=== PATIENT | male | born 1960 | race Asian ===

== ENCOUNTER 2018-07-26 23:29 | Emergency (ER) | payer OTHER ==
[~2018-07-26] VITALS: Ht 172.7 cm; Wt 81.6 kg
[2018-07-27 01:05] LABS: PLATELET COUNT 234 K/uL (142-355)
[2018-07-27 01:35] LABS: POTASSIUM 3.9 mmol/L (3.6-5.2); SODIUM 138 mmol/L (136-145)
[2018-07-27 02:45] VITALS: BP 185/98; TEMP 98.2
== END 2018-07-27 03:13 | disposition home or self-care (01) ==
LOC: ED 23:29
PROVIDERS: Emergency Medicine
DX: M79.18 Myalgia, other site (principal); E11.9 Type 2 diabetes mellitus without complications
CPT/HCPCS: 36415; 80053; 82550; 82553; 83735; 84484; 85027; 96372; 99283; J1885

== ENCOUNTER 2019-01-11 23:02 | Outpatient (CLI) | payer OTHER | END 2019-01-11 23:11 | disposition short-term general hospital (02) | LOC: AMB 23:02 | DX: M79.672 Pain in left foot (principal); M79.671 Pain in right foot; M79.601 Pain in right arm | CPT/HCPCS: A0425; A0429 ==

== ENCOUNTER 2019-01-11 23:14 | Emergency (ER) | payer OTHER ==
[~2019-01-11] VITALS: Ht 172.7 cm; Wt 81.6 kg
[2019-01-12 00:02] LABS: PLATELET COUNT 230 K/uL (142-355)
[2019-01-12 00:24] LABS: POTASSIUM 4.1 mmol/L (3.6-5.2)
[2019-01-12 00:43] VITALS: BP 187/79; TEMP 97.9
== END 2019-01-12 00:43 | disposition home or self-care (01) ==
LOC: ED 23:21
PROVIDERS: Emergency Medicine
DX: E11.40 Type 2 diabetes mellitus with diabetic neuropathy, unspecified (principal); E11.65 Type 2 diabetes mellitus with hyperglycemia; M79.671 Pain in right foot
CPT/HCPCS: 36415; 80053; 81000; 82962; 83735; 85027; 96360; 96372; 96375; 99284; J1815; J1885

== ENCOUNTER 2019-03-17 12:53 | Emergency (ER) | payer OTHER ==
[~2019-03-17] VITALS: Ht 172.7 cm; Wt 81.6 kg
[2019-03-17 13:02] VITALS: TEMP 98.9
[2019-03-17 14:30] VITALS: BP 139/86
== END 2019-03-17 14:40 | disposition home or self-care (01) ==
LOC: ED 12:53
DX: E11.40 Type 2 diabetes mellitus with diabetic neuropathy, unspecified (principal)
CPT/HCPCS: 99282

== ENCOUNTER 2019-06-03 12:56 | Emergency (ER) | payer OTHER ==
[~2019-06-03] VITALS: Ht 172.7 cm; Wt 81.6 kg
[2019-06-03 13:10] VITALS: TEMP 97.5
[2019-06-03 13:57] LABS: PLATELET COUNT 225 K/uL (142-355)
[2019-06-03 14:08] LABS: POTASSIUM 3.9 mmol/L (3.6-5.2)
[2019-06-03 15:47] VITALS: BP 152/84
== END 2019-06-03 15:48 | disposition home or self-care (01) ==
LOC: ED 12:56
PROVIDERS: Family Medicine
DX: E11.65 Type 2 diabetes mellitus with hyperglycemia (principal); I10 Essential (primary) hypertension; E11.42 Type 2 diabetes mellitus with diabetic polyneuropathy
CPT/HCPCS: 80053; 81000; 85027; 96360; 96375; 99284; J1815

== ENCOUNTER 2019-10-31 05:02 | Emergency (ER) | payer OTHER ==
[~2019-10-31] VITALS: Ht 172.7 cm; Wt 81.6 kg
[2019-10-31 05:25] LABS: PLATELET COUNT 203 K/uL (142-355)
[2019-10-31 05:42] LABS: POTASSIUM 4.2 mmol/L (3.6-5.2); SODIUM 143 mmol/L (136-145)
[2019-10-31 05:45] LABS: PARTIAL THROMBOPLASTIN TIME 27.8 SECONDS (24.5-33.6)
[2019-10-31 06:22] VITALS: BP 157/88; TEMP 99
== END 2019-10-31 06:23 | disposition home or self-care (01) ==
LOC: ED 05:02
PROVIDERS: Hospitalist
DX: I16.0 Hypertensive urgency (principal); R42 Dizziness and giddiness; F17.210 Nicotine dependence, cigarettes, uncomplicated
CPT/HCPCS: 80053; 82550; 83880; 84484; 85027; 85610; 85730; 93005; 99283

== ENCOUNTER 2020-10-15 14:32 | Emergency (ER) | payer OTHER ==
[~2020-10-15] VITALS: Ht 172.7 cm; Wt 93.0 kg
[2020-10-15 14:40] VITALS: TEMP 98.5
[2020-10-15 15:16] LABS: PLATELET COUNT 262 K/uL (142-355)
[2020-10-15 15:24] LABS: POTASSIUM 4.2 mmol/L (3.6-5.2)
[2020-10-15 17:18] VITALS: BP 100/73
== END 2020-10-15 17:19 | disposition home or self-care (01) ==
LOC: ED 14:32
PROVIDERS: Emergency Medicine
DX: L03.115 Cellulitis of right lower limb (principal); E11.65 Type 2 diabetes mellitus with hyperglycemia; W25.XXXA Contact with sharp glass, initial encounter; Y92.89 Other specified places as the place of occurrence of the external cause
CPT/HCPCS: 36415; 80048; 82948; 85027; 96360; 96372; 96375; 99284; J0696; J1815; J1885

== ENCOUNTER 2021-04-15 11:16 | Emergency (ER) | payer OTHER ==
[~2021-04-15] VITALS: Ht 172.7 cm; Wt 93.0 kg
[2021-04-15 11:26] VITALS: BP 117/71; TEMP 97.4
[2021-04-15 12:01] LABS: PLATELET COUNT 195 K/uL (142-355)
[2021-04-15 12:12] LABS: POTASSIUM 4.1 mmol/L (3.6-5.2)
== END 2021-04-15 12:54 | disposition home or self-care (01) ==
LOC: ED 11:16
PROVIDERS: Emergency Medicine
DX: E11.65 Type 2 diabetes mellitus with hyperglycemia (principal); Z79.84 Long term (current) use of oral hypoglycemic drugs; I10 Essential (primary) hypertension
CPT/HCPCS: 80048; 85027; 99283

== ENCOUNTER 2022-04-18 22:29 | Emergency (ER) | payer OTHER ==
[~2022-04-18] VITALS: Ht 172.7 cm; Wt 93.4 kg
[~2022-04-18 22:29] MED LIST: ADULT ASPIRIN R81 MG PO; AMLODIPINE BESYLATE PO; GLIP10TA55 PO; LIPITOR40 MG PO; METF500T PO; ZESTRIL40 MG PO
[2022-04-18 22:45] VITALS: BP 167/85; TEMP 98.9
[2022-04-18 23:39] LABS: PLATELET COUNT 207 K/uL (142-355)
[2022-04-18 23:59] LABS: PARTIAL THROMBOPLASTIN TIME 24.5 SECONDS (24.5-33.6)
[2022-04-19 01:16] LABS: POTASSIUM 4.1 mmol/L (3.6-5.2)
== END 2022-04-19 01:50 | disposition home or self-care (01) ==
LOC: ED 22:29
PROVIDERS: Emergency Medicine
DX: R51.9 Headache, unspecified (principal)
CPT/HCPCS: 36415; 80053; 84484; 85027; 85610; 85730; 93005; 99283; J1885

== ENCOUNTER 2022-08-16 21:07 | Emergency (ER) | payer OTHER ==
[~2022-08-16] VITALS: Ht 172.7 cm; Wt 99.8 kg
[2022-08-16 21:15] VITALS: TEMP 99.3
[2022-08-16 23:32] LABS: POTASSIUM 4.4 mmol/L (3.6-5.2)
[2022-08-17 00:44] VITALS: BP 152/75
== END 2022-08-17 00:44 | disposition home or self-care (01) ==
LOC: ED 21:07
PROVIDERS: Family Medicine
DX: M25.571 Pain in right ankle and joints of right foot (principal); M10.9 Gout, unspecified; M77.31 Calcaneal spur, right foot; M19.90 Unspecified osteoarthritis, unspecified site
CPT/HCPCS: 36415; 80048; 84550; 96372; 99283; J1885

== ENCOUNTER 2022-10-21 22:10 | Emergency (ER) | payer OTHER ==
[~2022-10-21] VITALS: Ht 172.7 cm; Wt 95.3 kg
[2022-10-21] MEDS ORDERED: TRULICITY0.75 MG/0. SC (22:30)
[2022-10-21 22:48] LABS: PLATELET COUNT 222 K/uL (142-355)
[2022-10-21 22:55] LABS: POTASSIUM 3.7 mmol/L (3.6-5.2)
[2022-10-22 00:33] VITALS: BP 136/79; TEMP 98
== END 2022-10-22 00:33 | disposition home or self-care (01) ==
LOC: ED 22:10
PROVIDERS: Family Medicine
DX: R42 Dizziness and giddiness (principal); R53.1 Weakness; I10 Essential (primary) hypertension; E11.9 Type 2 diabetes mellitus without complications; E78.5 Hyperlipidemia, unspecified
CPT/HCPCS: 36415; 80053; 85027; 99283; J0360